=== PATIENT | male | born 1960 | race Two or more races ===

== ENCOUNTER → 2021-11-05 08:00 | Outpatient (CLI) | payer OTHER | END | disposition home or self-care (01) | LOC: LAB 08:00 → ADM 15:30 → AMB-ENDOS 11-07 15:30 → EDSTATUS 11-07 15:30 | PROVIDERS: ATTEND Colon & Rectal Surgery | DX: U07.1 COVID-19 (principal); D12.0 Benign neoplasm of cecum; Z86.010 Personal history of colon polyps ==